=== PATIENT | male | born 1965 | race Caucasian/White ===

== ENCOUNTER 2018-11-12 13:58 | Emergency (ER) | payer SELFPAY ==
--- NOTE | 2018-11-12 14:17 | UC ---
Respiratory Complaint HPI - HPI Summary HPI Summary: 53 y/o male presents to the urgent care c/o SOB and intermittent wheezing and productive cough for the past 3 months. Pt reports Hx of HTN, but stopped taking BP medication years ago since he doesn't have health insurance. He has noticed lately a lot of SOB when he does extraneous exercise or heavy lifting. For the past week wheezing has worsen w/ some fluid in his lung. Pt used to be a heavy everyday smoker who stopped 20 yrs ago, but is exposed to secondary hand smoking on a daily basis. Last time Pt saw a doctor was in 2016 since no health insurance. Pt denies FMHX of ID at an early age. He mentions Hx A-fib in the past, but long time ago. Pt denies NOLAND, dizziness, chest pain, visual changes , abdominal pain, N/V/D, NOLAND, rash or neck pain. He has not taken anything to alleviate cough. - History of Current Complaint Chief Complaint: UCRespiratory Stated Complaint: COUGH CONGESTION Time Seen by Provider: 11/12/18 14:16 Hx Obtained From: Patient Onset/Duration: Gradual Onset, Lasting Weeks - 3 months w/ SOB on excertion wheezing at times and feels fluid in his lungs Timing: Intermittent Episodes Severity Initially: Mild Severity Currently: Moderate - wheezing Pain Intensity: 0 Pain Scale Used: 0-10 Numeric Character: Cough: Productive, Sputum Description: - yellowish Aggravating Factors: Recumbent Position Alleviating Factors: Nothing Associated Signs And Symptoms: Positive: Dyspnea, Wheezing. Negative: Hemoptysis, Dizziness, Calf Pain, Edema, URI, Nasal Congestion, Sinus Discomfort - Risk Factors Pulmonary Embolism Risk Factors: Negative Cardiac Risk Factors: Hypertension Pseudomonas Risk Factors: Negative Tuberculosis Risk Factors: Negative - Allergies/Home Medications Allergies/Adverse Reactions: Allergies Allergy/AdvReac Type Severity Reaction Status Date / Time ibuprofen [From Advil] Allergy Itching Verified 11/12/18 14:02 NSAIDS (Non-Steroidal Allergy Hives Verified 11/12/18 14:01 Anti-Inflamma PMH/Surg Hx/FS Hx/Imm Hx Previously Healthy: Yes Cardiovascular History: Hypertension - uncontrolled - Surgical History Surgical History: None - Family History Known Family History: Positive: Hypertension - mother, Other - mother has migraine headaches - Social History Occupation: Employed Full-time Lives: With Family Alcohol Use: Occasionally Alcohol Amount: beer Substance Use Type: None Smoking Status (MU): Former Smoker Review of Systems All Other Systems Reviewed And Are Negative: Yes Constitutional: Positive: Negative Skin: Positive: Negative Eyes: Positive: Negative ENT: Positive: Negative Respiratory: Positive: Shortness Of Breath, Cough - productive w/ yellowish phlegm, Other - wheezing Cardiovascular: Positive: Negative Gastrointestinal: Positive: Negative Genitourinary: Positive: Negative Motor: Positive: Negative Neurovascular: Positive: Negative Musculoskeletal: Positive: Negative Neurological: Positive: Negative Psychological: Positive: Negative Is Patient Immunocompromised?: No Physical Exam - Summary Physical Exam Summary: Vital Signs Reviewed: Yes General: well developed, well nourished obese male sitting in the examining table w/o any apparent distress Eyes: Positive: Conjunctiva Clear - PERRLA, EOMI, fundi grossly normal ENT: Positive: Normal ENT inspection, Hearing grossly normal, Pharynx normal, Nasal congestion - edematous and erythematous nasal mucosa, Nasal drainage - yellowish drainage, TMs normal. Negative: Tonsillar swelling, Tonsillar exudate Neck: Positive: Supple, Nontender, No Lymphadenopathy Respiratory: no orthopnea or dyspnea. Able to speak in full sentences, no retractions or accessory muscle use, no tripod position, stridor, or head bobbing. Positive breath sounds bilaterally. diffuse scattered wheezing and rhonchi on b/L lungs, no crackles or rales. Cardiovascular: Positive: RRR, No Murmur, Pulses Normal, Brisk Capillary Refill Abdomen Description: Positive: Nontender, No Organomegaly, Soft. Negative: CVA Tenderness (R), CVA Tenderness (L) Bowel Sounds: Positive: Present Musculoskeletal Exam: Normal Musculoskeletal: Positive: Strength Intact, ROM Intact, No Edema Neurological Exam: Normal Psychological Exam: Normal Skin Exam: Normal Triage Information Reviewed: Yes Vital Signs: Initial Vital Signs Temp 98 F 11/12/18 14:11 Pulse 68 11/12/18 14:11 Resp 16 11/12/18 14:11 BP 167/110 11/12/18 14:11 Pulse Ox 93 11/12/18 14:11 Respiratory Course/Dx - Course Course Of Treatment: 53 y/o male presents to the urgent care c/o SOB and intermittent wheezing and productive cough for the past 3 months. Pt reports Hx of HTN, but stopped taking BP medication years ago since he doesn't have health insurance. He has noticed lately a lot of SOB when he does extraneous exercise or heavy lifting. For the past week wheezing has worsen w/ some fluid in his lung. Pt used to be a heavy everyday smoker who stopped 20 yrs ago, but is exposed to secondary hand smoking on a daily basis. Last time Pt saw a doctor was in 2016 since no health insurance. Pt denies FMHX of ID at an early age. He mentions Hx A-fib in the past, but long time ago. Pt denies NOLAND, dizziness, chest pain, visual changes , abdominal pain, N/V/D, NOLAND, rash or neck pain. He has not taken anything to alleviate cough. Hx obtained. Pt is hemodynamically stable, A&Ox3, w/ B/L lungs scattered wheezing and rhonchi on examination. O2Sat:93%. BP:167/110, EKG : NSR, HR:61bpn, NO ST elevation or depressions, borderline T wave inversion, but when compared w/ previous EKG/2005 it seems it is a chronic issue. Chest X- ray ordered: no acute disease observed as per radiologist. Pt w/ possible a COPD exacerbation. Pt's symptoms discussed w/ DR Rivas who review EKG and chest X-ray. BP manually in both arms 152/90 w/ large BP cuff. DR Rivas recommended Duoneb treatment to see if improvement of SOB and wheezing. Duoneb treatment ordered and given by nurse. Pt tolerated well medications w/ slight improvement of wheezing, O2Sat: increase to 94%, but Pt just states slight improvement. I think since no improvement and due to PT's uncontrolled HTN and not reliable f/u w/ a PCP, Pt should go to the [place] [facility] for a cardiac work up which DR Rivas agrees even though BP is better. Pt strongly advised to go to [facility] [place] [facility] by ambulance and explained the risks of not going there for a cardiac work up. Pt declines to go to the ER and wants to sign AMA. I extensively discussed with the patient the benefits and risk of leaving AMA. I also discussed the alternatives to leaving AMA, however, the patient still insist to leave the urgent care AMA. The patient is clinically sober, free from distracting injury, appears to have intact insight and judgment and reason and in my opinion has the capacity to make decisions. Patient has full capacity and is cognitively intact. The patient presents with SOB and wheezing which may be due to aCOPD exacerbation.I explained that I am concerned with his uncontrolled HTN and since he has not seen a PCP for several years it will be better to perform a cardiac work up to r/o any abnormality. The patient verbalizes understanding of my concerns. I have also explained the results of the EKG and chest X-ray and even though they are WNL. He states he doesn't have an health insurance and doesn't have chest pain or feels dizzy at this moment. The primary nurse and the charge nurse also strongly recommended that the patient should not leave AMA. Patient understands the risk of leaving AMA, which includes but is not restricted to . Patient signed the AMA form.He requests Tx since he feels his wheezing improved. Pt will be tx w/ Rx Doxycycline PO , Prednisone taper dose and Inhaler. Pt given also information on free [facility] for f/u with a PCP for further management.advised to decrease salt in her diet and monitor BP, if it continues to be elevated to f/u with her PCP. Again, I discussed all the findings and test results with the patient. Patient was instructed to go to the ER immediately if SOB, wheezing, worsens or if he devlelops dizziness, chest pain, NOLAND or sicual changes. Plan of care was discussed with the patient and understands and agrees. All questions were answered at patient satisfaction. There were no further complaints or concerns. Patient signed AMA and he was discharged AMA. Pt understood and agreed with D/C instructions and left the clinic hemodynamically stable. - Differential Dx/Diagnosis Differential Diagnosis/HQI/PQRI: Asthma, Bronchitis, CHF, Pulmonary Edema, Exacerbation Of COPD, Lower Resp Infection, Other - ID, Provider Diagnosis: Wheezing, SOB (shortness of breath) on exertion, Uncontrolled hypertension Discharge ED - Sign-Out/Discharge Documenting (check all that apply): Patient Departure All imaging exams completed and their final reports reviewed: Yes - Discharge Plan Condition: Stable Disposition: AGAINST MEDICAL ADVICE Prescriptions: Albuterol HFA INHALER* [Ventolin HFA Inhaler*] 1 - 2 puff INH Q6H PRN #1 mdi PRN Reason: Wheezing DOXYcycline CAP(*) [DOXYcycline 100MG CAP(*)] 100 mg PO BID #20 cap predniSONE TAB* [Deltasone 20 MG TAB*] 20 mg PO DAILY #11 tab Patient Education Materials: COPD (Chronic Obstructive Pulmonary Disease) (ED) , Wheezing (ED) Forms: *Work Release Referrals: Abdelrahman Garcia MD [Primary Care Provider] - 3 Days Additional Instructions: 1- I think you need a higher level or care for your presenting symptoms to do a cardiac work up. I highly recommend you to go to the [place] [facility] for further evaluation and treatment. The risks of not going can be , , heart attack, stroke, PE . However your are declined. 2- Take Prednisone PO taper dose as directed. Take Doxycycline PO full course of antibiotic as directed 2-Use albuterol inhaler to alleviate SOB, and wheezing as directed . Increase fluid intake, rest and eat well. 3- If symptoms do not improve or worsen or you continue w/ SOB and severe wheezing please go immediately to the [place] [facility] further evaluation and treatment. 4-Your BP is elevated today despite taking it w/ another BP cuff. Please take your BP medications and decrease salt in your diet, monitor BP and if it continues to be elevated please f/u with your PCP for further management. If you develop chest pain, dizziness, visual disturbances, SOB, or severe NOLAND please go immediately to the [place] [facility] for further management 5- You were given information about free-clinic to f/u w/ a PCP as soon as possible. - Billing Disposition and Condition Condition: STABLE Disposition: Against Medical Advice - Attestation Statements Provider Attestation: Per institutional requirements, I have reviewed the chart, however, I was not consulted specifically or made aware of this patient by the midlevel provider. I did not personally evaluate, interact with , or disposition this patient.
[2018-11-12] MEDS ORDERED: Albuterol/Ipratropium NEB.SOL* Albuterol 2.5 MG/Ipratropium 0.5 MG 3 ML INH ONE (14:49)
[2018-11-12 15:12] VITALS: BP 152/90
== END 2018-11-12 15:45 | disposition left against medical advice (07) ==
LOC: UCEAST 13:58
DX: R06.2 Wheezing (principal); R06.02 Shortness of breath; I10 Essential (primary) hypertension; Z87.891 Personal history of nicotine dependence
CPT/HCPCS: 71046; 99203; A9270-GY; G0463